=== PATIENT | male | born 1985 | race Caucasian/White ===

== ENCOUNTER 2023-01-04 10:13 | Outpatient (CLI) | payer MEDICAID | END 2023-01-04 23:59 | disposition home or self-care (01) | LOC: RAD 10:13 | PROVIDERS: ATTEND General Practice | DX: I51.7 Cardiomegaly (principal); F11.20 Opioid dependence, uncomplicated | CPT/HCPCS: 93005 ==

== ENCOUNTER 2023-01-04 10:57 | Emergency (ER) | payer MEDICAID ==
[~2023-01-04] VITALS: Ht 182.9 cm; Wt 81.8 kg
[2023-01-04 11:24] VITALS: BP 122/79
== END 2023-01-04 16:34 | disposition left against medical advice (07) ==
LOC: ER 10:58
DX: M79.602 Pain in left arm (principal); Z53.21 Procedure and treatment not carried out due to patient leaving prior to being seen by health care provider
CPT/HCPCS: 99281

== ENCOUNTER 2023-01-05 11:22 | Emergency (ER) | payer MEDICAID ==
[~2023-01-05] VITALS: Ht 185.4 cm; Wt 84.1 kg
[2023-01-05 11:26] VITALS: BP 111/70
== END 2023-01-05 12:19 ==
LOC: ER 11:23
DX: M79.602 Pain in left arm (principal); F17.200 Nicotine dependence, unspecified, uncomplicated
CPT/HCPCS: 99283